=== PATIENT | female | born 2000 | race Caucasian/White ===

== ENCOUNTER 2020-03-14 12:01 | Emergency (ER) | payer MEDICAID ==
--- NOTE | 2020-03-14 12:53 | EDM.PDOC ---
ED HPI GENERAL MEDICAL PROBLEM - General Chief Complaint: Respiratory Problem Stated Complaint: SOB/SORE THROAT/COUGH Time Seen by Provider: 03/14/20 12:43 - History of Present Illness INITIAL COMMENTS - FREE TEXT/NARRATIVE: 19-year-old female presents the emergency room with sore throat cough and nasal congestion. Patient has had a several day history of upper airway congestion cough and sore throat. She is not aware of any fevers or chills. Patient is currently being worked up for respiratory condition. She has had pulmonary function test done I am unaware of the results of this. Patient lost her voice yesterday and this is starting to come back but is not completely better. Patient has some intermittent ear discomfort interestingly patient had tube placed in her left ear this last July. Patient denies . She is having her period at this time. Chest Pain Score (Numeric/FACES): 6 - Related Data Allergies Allergy/AdvReac Type Severity Reaction Status Date / Time metoclopramide [From Reglan] Allergy Hives Verified 03/14/20 12:12 Penicillins Allergy Hives Verified 03/14/20 12:12 promethazine Allergy Hives Verified 03/14/20 12:12 Home Meds: Home Meds . [No Known Home Meds] 03/14/20 [History] Past Medical History HEENT History: Reports: Otitis Media Other HEENT History: states had epiglottitis. Respiratory History: Reports: Bronchitis, Recurrent, Pneumonia, Recurrent, Other (See Below) Other Respiratory History: pleurisy. 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: Neurological History: Reports: Concussion, Vertigo Other Neuro History: POTS Psychiatric History: Reports: Anxiety, Depression Hematologic History: Reports: Anemia - Infectious Disease History Infectious Disease History: Reports: C-Difficile, Influenza - Past Surgical History HEENT Surgical History: Reports: Myringotomy w Tube(s) GI Surgical History: Reports: Cholecystectomy Social & Family History - Tobacco Use Smoking Status *Q: Never Smoker Second Hand Smoke Exposure: No - Caffeine Use Caffeine Use: Reports: Tea - Recreational Drug Use Recreational Drug Use: No ED ROS GENERAL - Review of Systems Review Of Systems: See Below Constitutional: Reports: No Symptoms HEENT: Reports: Rhinitis, Sinus Problem, Throat Pain Respiratory: Reports: Cough. Denies: Shortness of Breath, Wheezing Cardiovascular: Reports: No Symptoms Endocrine: Reports: No Symptoms GI/Abdominal: Denies: Abdominal Pain, Constipation, Diarrhea, Nausea, Vomiting : Reports: No Symptoms Musculoskeletal: Reports: No Symptoms Skin: Reports: No Symptoms Neurological: Reports: No Symptoms ED EXAM, GENERAL - Physical Exam Exam: See Below Exam Limited By: No Limitations General Appearance: Alert, No Apparent Distress Eye Exam: Bilateral Eye: Normal Inspection Ears: Other (Left tympanic membrane is minimally erythematous there is a tube set in the canal right tympanic membrane is normal) Nose: Normal Inspection, Other (And is percussion reveals marked sinus tenderness on the right maxillary sinus to a lesser degree the right frontal sinus no left-sided sinus tenderness.) Throat/Mouth: Normal Inspection, Normal Lips, Normal Teeth, Normal Gums, Normal Oropharynx, Normal Voice, No Airway Compromise Head: Atraumatic, Normocephalic Neck: No: Lymphadenopathy (L), Lymphadenopathy (R) Respiratory/Chest: No Respiratory Distress, Lungs Clear, Normal Breath Sounds Cardiovascular: Regular Rate, Rhythm, No Edema, No Murmur GI/Abdominal: Normal Bowel Sounds, Soft, Non-Tender Back Exam: Normal Inspection. No: CVA Tenderness (L), CVA Tenderness (R) Extremities: Normal Inspection, No Pedal Edema Neurological: Alert, Oriented, Normal Cognition Course - Vital Signs Last Recorded V/S: Last Vital Signs Temp 36.4 C 03/14/20 12:05 Pulse 98 03/14/20 12:05 Resp 18 03/14/20 12:05 BP 118/77 03/14/20 12:05 Pulse Ox 98 03/14/20 12:05 - Orders/Labs/Meds Labs: Laboratory Tests 03/14/20 Range/Units 13:10 SARS-CoV-2 RNA (KENDRA) Negative (NEGATIVE) - Re-Assessments/Exams Free Text/Narrative Re-Assessment/Exam: 03/14/20 14:27 Patient's chest x-ray is entirely normal. COVID screen is negative. The patient will be treated for sinusitis with clindamycin 300 mg 3 times a day as the patient is pen allergic. Departure - Departure Time of Disposition: 14:27 Disposition: Home, Self-Care 01 Clinical Impression: Right maxillary sinusitis, Pharyngitis - Discharge Information Forms: ED Department Discharge Additional Instructions: Return to the emergency room with any questions problems or worsening symptoms. You have been started on clindamycin this is an antibiotic take 1 3 times a day until they are all gone. Establish with a local healthcare provider you may follow-up with the hospital clinic here. [phone] Sepsis Event Note (ED) - Evaluation Sepsis Screening Result: No Definite Risk - Focused Exam Vital Signs: Vital Signs Temp Pulse Resp BP Pulse Ox 03/14/20 12:05 36.4 C 98 18 118/77 98
--- NOTE | 2020-03-14 13:24 | CR ---
Chest: Portable view of the chest was obtained. Comparison: No prior chest imaging is available. Heart size and mediastinum are normal. Lungs are clear with no acute parenchymal change. Bony structures shows minimal scoliosis within the spine. Previous cholecystectomy is noted. Impression: 1. Nothing acute is appreciated on portable chest x-ray. Diagnostic code #2 This report was dictated in MDT
== END 2020-03-14 14:40 | disposition home or self-care (01) ==
LOC: JD.ED 12:01
DX: J02.9 Acute pharyngitis, unspecified (principal); J32.0 Chronic maxillary sinusitis; Z88.8 Allergy status to other drugs, medicaments and biological substances; Z88.0 Allergy status to penicillin; Z20.828 Contact with and (suspected) exposure to other viral communicable diseases
CPT/HCPCS: 71045; 71045-26; 99283; 99283-25; U0002

== ENCOUNTER 2020-03-27 14:17 | Emergency (ER) | payer MEDICAID ==
[2020-03-27] MEDS ORDERED: cefTRIAXone 2 GM in Sodium Chloride 0.9% 100 ML IV ONE (16:05)
[2020-03-27] MEDS ORDERED: Sodium Chloride 0.9% 10 ML Syringe FLUSH PRN (16:05)
--- NOTE | 2020-03-27 16:06 | EDM.PDOC ---
ED HPI GENERAL MEDICAL PROBLEM - General Chief Complaint: Neuro Symptoms/Deficits Stated Complaint: L EAR PAIN/BLEEDING Time Seen by Provider: 03/27/20 15:55 Source of Information: Reports: Patient History Limitations: Reports: No Limitations - History of Present Illness INITIAL COMMENTS - FREE TEXT/NARRATIVE: 19-year-old female presents to the ED complaining of bilateral ear pain for the last 2 weeks. She is feeling very off kilter and her balance and states she lists towards the left side. Associated headache occasional nausea associated with vertigo symptoms. She feels like the world is spinning at times and only gets better if she holds very still. She reports having myringotomy tubes placed within the last 9 months due to chronic serous otitis media. She appre ciates some drainage intermittently from the left ear. She denies any nasal congestion. She denies fever or chills. She denies any cough. Of note the patient fainted when she was being guided back to her room in the hallway outside of room #2. She was unresponsive for a good minute. She was breathing with a pulse. We were able to pick her up and put her on a gurney and get her into her room. She did complain of diffuse low back pain after that fall even though her fall was broken by 1 of the nurses. She certainly did not bang her head on the floor. Onset: Other (Having injured brought medical problems with ear pain for the last 2 weeks.) Duration: Week(s):, Getting Worse (Gait on the left side.) Location: Reports: Other (Increasing bouts of severe vertigo where the room is spinning. Increased pain in both ears worse on the left than the right.) Quality: Reports: Other (Significant vertigo especially with movement of her head to the left side. This will be associate with nausea and no vomiting so far) Severity: Severe Improves with: Reports: Rest Worsens with: Reports: Movement Context: Denies: Activity, Exercise, Lifting, Sick Contact, Trauma, Other Associated Symptoms: Reports: Headaches, Loss of Appetite, Malaise, Nausea/Vomiting (Nausea without vomiting), Other (Off balance). Denies: No Other Symptoms, Confusion, Chest Pain, Cough, cough w sputum, Diaphoresis, Fever/Chills, Rash, Seizure, Shortness of Breath, Syncope Treatments YEAST DISTILLER: Reports: Acetaminophen Bilateral Ear Pain Score (Numeric/FACES): 5 - Related Data Allergies Allergy/AdvReac Type Severity Reaction Status Date / Time adhesive Allergy Severe Hives Verified 03/27/20 15:05 chlorhexidine Allergy Severe Hives Verified 03/27/20 15:05 metoclopramide [From Reglan] Allergy Severe Hives Verified 03/27/20 15:05 Penicillins Allergy Severe Hives Verified 03/27/20 15:05 promethazine Allergy Severe Hives Verified 03/27/20 15:05 Home Meds: Home Meds Hydrocort/Neomycin/Polymyxin B [Dcmrhsjf-Pbnecnuxw-HR Otic Susp] 10 ml EARLF TID #1 bottle 03/27/20 [Rx] levoFLOXacin [Levaquin] 500 mg PO DAILY #9 tab 03/27/20 [Rx] oxyCODONE HCl/Acetaminophen [Percocet 5-325 mg Tablet] 1 - 2 each PO Q4H PRN #15 tablet 03/27/20 [Rx] Past Medical History HEENT History: Reports: Otitis Media Other HEENT History: states had epiglottitis. Cardiovascular History: Reports: Other (See Below) Other Cardiovascular History: postural orthostatic tachycardic syndrome Respiratory History: Reports: Bronchitis, Recurrent, Pneumonia, Recurrent, Other (See Below) Other Respiratory History: pleurisy. 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: Neurological History: Reports: Concussion, Vertigo Other Neuro History: POTS Psychiatric History: Reports: Anxiety, Depression Hematologic History: Reports: Anemia - Infectious Disease History Infectious Disease History: Reports: C-Difficile, Influenza - Past Surgical History HEENT Surgical History: Reports: Myringotomy w Tube(s) GI Surgical History: Reports: Cholecystectomy Social & Family History - Family History Family Medical History: Noncontributory - Tobacco Use Smoking Status *Q: Never Smoker - Caffeine Use Caffeine Use: Reports: Tea - Recreational Drug Use Recreational Drug Use: No - Living Situation & Occupation Living situation: Reports: Single Occupation: Employed ED ROS ENT - Review of Systems Review Of Systems: See Below Constitutional: Reports: Malaise, Weakness, Fatigue, Decreased Appetite, Weight Loss. Denies: Fever, Chills HEENT: Reports: Glasses, Vertigo (Especially when looking to the left side.) Respiratory: Denies: No Symptoms, Shortness of Breath, Wheezing, Pleuritic Chest Pain, Cough Cardiovascular: Reports: Lightheadedness. Denies: Chest Pain, Blood Pressure Problem, Claudication, Dyspnea on Exertion, Edema, Orthopnea, Palpitations Endocrine: Reports: Fatigue GI/Abdominal: Reports: Nausea. Denies: Vomiting (Late into the vertigo.) : Reports: No Symptoms Musculoskeletal: Reports: Back Pain (He is low back pain since fainting in the hallway outside of room #2 in the ED. She was caught partially by the nursing staff but she still hit the floor fairly hard with her back) Skin: Reports: No Symptoms Neurological: Reports: Dizziness, Difficulty Walking, Gait Disturbance. Denies: Confusion, Headache, Numbness (Which is interpreted as vertigo particularly with looking to the left.), Pre-Existing Deficit ( She has bumped into [place] etc.), Syncope, Tingling, Tremors, Trouble Speaking (Finds her self listing towards the left side when she is walking down the hallway.), Weakness, Change in Speech Psychiatric: Reports: Anxiety. Denies: Hallucinations (Mild) Hematologic/Lymphatic: Reports: No Symptoms ED EXAM, ENT - Physical Exam Exam: See Below Exam Limited By: No Limitations General Appearance: Alert, WD/WN, Mild Distress (She is mildly distressed since she fainted in the hallway. She does admit that she has not had anything to eat or drink today.), Other (Temperature is 36.2. Heart rate 73 and sinus respiratory is 18 sats 100% on room air. BP is 127/71.) Eye Exam: Left Eye: Nystagmus (Denies statement sustained on looking to right.), Bilateral Eye: Normal Inspection, PERRL (Pills are 8 mm and symmetrical and respond to light.) Ears: Other (Patient has a green myringotomy tubes in both tympanic membranes. On the right side it is completely normal on the left of the eardrum is bulging erythematous and there is purulent material exuding from around the tube as well of some inside the tube into the ear canal. The tube itself may will actually be occluded with inspissated 6 secretions and not be draining properly. There is no cerumen in either ear canal.) Nose: Nasal Swelling Mouth/Throat: Normal Inspection (She has significant nasal swelling of the medial and superior turbinates bilaterally.), Normal Gums, Normal Lips, Normal Teeth, Other (He has suffered no dental or) Head: Atraumatic, Normocephalic, Other (There are no outward signs of head or facial trauma.) Neck: Normal Inspection, Supple, Non-Tender, Full Range of Motion. No: Lymphadenopathy (L), Lymphadenopathy (R) Respiratory/Chest: No Respiratory Distress, Lungs Clear, Normal Breath Sounds, No Accessory Muscle Use, Chest Non-Tender Cardiovascular: Normal Peripheral Pulses, No Edema, No Gallop, No Murmur, No Rub Back: Normal Inspection, Vertebral Tenderness (Patient is tender along the vertebra of the lumbar spine particularly lumbar 1 and lumbar to his spinous processes. There was no evidence of abrasions or contusions at this time). No: CVA Tenderness (L), CVA Tenderness (R) Extremities: Normal Inspection, Normal Range of Motion, Non-Tender, No Pedal Edema, Normal Capillary Refill Neurological: Alert, Oriented, CN II-XII Intact, Normal Cognition, Normal Gait, No Motor/Sensory Deficits Psychiatric: Anxious, Tearful Skin: Warm, Dry, Intact, Normal Color, No Rash Course - Vital Signs Last Recorded V/S: Last Vital Signs Temp 36.2 C 03/27/20 15:01 Pulse 73 03/27/20 15:01 Resp 18 03/27/20 15:01 BP 127/71 03/27/20 15:01 Pulse Ox 100 03/27/20 15:01 - Orders/Labs/Meds Orders: Active Orders 24 hr Category Date Time Status Peripheral IV Care [RC] . DIRECTED Care 03/27/20 16:05 Active Lumbar Spine 2 or 3V [CR] Stat Exams 03/27/20 16:13 Taken Sodium Chloride 0.9% [Saline Flush] Med 03/27/20 16:05 Active 10 ml FLUSH ASDIRECTED PRN Durable Medical Equipment for Discharge [DME for Oth 03/27/20 19:05 Ordered Discharge] [COMM] Stat Peripheral IV Insertion Adult [OM.PC] Stat Oth 03/27/20 16:05 Ordered Medication Orders Sodium Chloride (Saline Flush) 10 ml FLUSH ASDIRECTED PRN PRN Reason: Keep Vein Open Last Admin: 03/27/20 16:11 Dose: 10 ml Documented by: KATHIA Meds: Medications Generic Name Dose Route Start Last Admin Trade Name Freq PRN Reason Stop Dose Admin Sodium Chloride 10 ml 03/27/20 16:05 03/27/20 16:11 Saline Flush FLUSH 10 ml ASDIRECTED PRN Administration Keep Vein Open Discontinued Medications Generic Name Dose Route Start Last Admin Trade Name Анна PRN Reason Stop Dose Admin Ceftriaxone Sodium 2 gm/ 100 mls @ 200 mls/hr 03/27/20 16:05 03/27/20 16:10 Sodium Chloride IV 03/27/20 16:34 200 mls/hr ONETIME ONE Administration Metoclopramide HCl 7.5 mg 03/27/20 16:13 Reglan IVPUSH 03/27/20 16:14 ONETIME STA Ondansetron HCl 4 mg 03/27/20 16:12 03/27/20 16:20 Zofran IVPUSH 03/27/20 16:13 4 mg ONETIME ONE Administration - Radiology Interpretation Free Text/Narrative:: 19-year-old female attends the ED primarily due to bilateral ear pain reported for the last 2 weeks. She has had myringotomy tubes placed for chronic middle ear infection about 9 months ago. She is also experiencing significant vertigo symptoms listing towards the left side and associated nausea without vomiting. She fainted in the hallway on the way back to room #5 in front of room #2 and the nurse was able to break most of her fall to the floor but she did hit her lower back lumbar spine on the floor her head was spared injury. We picked her up and put her on the gurney and she started to come around. She was unresponsive for a good minute. He will had a pulse and was breathing adequately. Examination reveals an acute left otitis media with purulent material coming from the myringotomy tube as well as around the tube suggesting the tube itself may be occluded with inspissated secretions. She does have some mild sustained nystagmus on right lateral gaze. She did fine with [id number] assessment and [id number] assessment and rapid alternating movements. She did have some pain on palpation of her lumbar spine and therefore an x-ray of the L-spine will be obtained. - Re-Assessments/Exams Free Text/Narrative Re-Assessment/Exam: 03/27/20 16:28: X-rays of the lumbar spine revealed no fractures. Plan she will be placed on oral antibiotic Levaquin 500 mg once daily for the next 9 days. She did complete 1 g of Rocephin while in the emergency department IV. She is allergic to penicillins and it says severe therefore I did not place her on Omnicef as originally planned. She will be placed on Cortisporin otic drops 3 drops to the left ear 3 times daily for the next 5 days in an effort to penetrate the middle ear cavity and hopefully unoccluded the myringotomy tube. Advised follow-up in the clinic in a week's time. She was given Zofran 4 mg sublingual before she left due to nausea felt to be related to vertigo symptoms. Note given to excuse her from the workplace for the next 4 days. Departure - Departure Time of Disposition: 18:48 Disposition: Home, Self-Care 01 Condition: Fair Clinical Impression: Left middle ear infection Qualifiers: Otitis media type: suppurative Chronicity: acute Recurrence: recurrent Spontaneous tympanic membrane rupture: without spontaneous rupture Qualified Code(s): H66.005 - Acute suppurative otitis media without spontaneous rupture of ear drum, recurrent, left ear Acute labyrinthitis Qualifiers: Laterality: left Qualified Code(s): H83.02 - Labyrinthitis, left ear Contusion of lower back Qualifiers: Encounter type: initial encounter Qualified Code(s): S30.0XXA - Contusion of lower back and pelvis, initial encounter - Discharge Information *PRESCRIPTION DRUG MONITORING PROGRAM REVIEWED*: Not Applicable *COPY OF PRESCRIPTION DRUG MONITORING REPORT IN PATIENT FRANCOISE: Not Applicable Prescriptions: Hydrocort/Neomycin/Polymyxin B [Ivvothwr-Xvbxgjpfp-LO Otic Susp] 10 ml EARLF TID #1 bottle levoFLOXacin [Levaquin] 500 mg PO DAILY #9 tab oxyCODONE HCl/Acetaminophen [Percocet 5-325 mg Tablet] 1 - 2 each PO Q4H PRN #15 tablet PRN Reason: pain relief. Instructions: Otitis Media, Adult Referrals: PCP,None [Primary Care Provider] - Forms: ED Department Discharge, ED Return to Work/School Form Additional Instructions: Evaluation in the emergency room today in regards to bilateral ear pain for the last week. Myringotomy tubes have been placed within the last 9 months because of chronic middle ear infections. The infections have also caused you to have a marked disruption in your balance with listing to the left side and potentially easily to fall. You also appreciated some decreased sensation in the left side of your zane-face. All of the cranial nerves are otherwise working. Examination reveals that there is purulent material bulging around the myringotomy tube on the left side and I suspect the left myringotomy tube is plugged with purulent crust. The eardrum is bulging causing pain. The right side appears to be functioning normally. You had a fainting episode while in the hospital today and you were partially caught to break your fall to the floor but you still hit your back fairly hard on the floor and therefore x-rays of the back were obtained. The x-rays did not show any broken bones and normal alignment. No soft tissue abnormalities were identified either. Expect to have increased stiffness and soreness in your lower back over the next 3 to 4 days. Treatment of your left ear infection is combination of eardrops called Cortisporin optic drops use 3 drops to the left ear 3 times daily for the next 5 days of course lay on your right side for good 5 to 10 minutes after you put the drops into allow them to hopefully enter the middle ear cavity. You will also need to take oral antibiotic Levaquin 500 mg once daily around suppertime for t he next 9 days. First dose of antibiotic called Rocephin was given in the emergency room so that it will start working quicker for you. 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 Suggest follow-up with your personal care physician in 8 to 10 days time to see how you are doing. Pain medication to be Percocet tabs 5/325 mg usually 1 tablet with Motrin 600 mg every 6 hours is enough to control pain both in your ear and in your low back. Pain pill should be taken with some food in your stomach and if you take enough of them the aid will cause constipation. Some people need to take MiraLAX powder 17 g or 1 scoop daily to prevent constipation from occurring while taking these pills. Sepsis Event Note (ED) - Evaluation Sepsis Screening Result: No Definite Risk - Focused Exam Vital Signs: Vital Signs Temp Pulse Resp BP Pulse Ox 03/27/20 15:01 36.2 C 73 18 127/71 100 - My Orders Last 24 Hours: My Active Orders 03/27/20 16:05 Peripheral IV Care [RC] . DIRECTED Sodium Chloride 0.9% [Saline Flush] 10 ml FLUSH ASDIRECTED PRN Peripheral IV Insertion Adult [OM.PC] Stat 03/27/20 16:13 Lumbar Spine 2 or 3V [CR] Stat 03/27/20 19:05 Durable Medical Equipment for Discharge [DME for Discharge] [COMM] Stat - Assessment/Plan Last 24 Hours: My Active Orders 03/27/20 16:05 Peripheral IV Care [RC] . DIRECTED Sodium Chloride 0.9% [Saline Flush] 10 ml FLUSH ASDIRECTED PRN Peripheral IV Insertion Adult [OM.PC] Stat 03/27/20 16:13 Lumbar Spine 2 or 3V [CR] Stat 03/27/20 19:05 Durable Medical Equipment for Discharge [DME for Discharge] [COMM] Stat
[2020-03-27] MEDS ORDERED: Ondansetron 4 MG/2 ML SDV IVPUSH ONE (16:12)
[2020-03-27] MEDS ORDERED: Metoclopramide 10 MG/2 ML SDV IVPUSH STA (16:13)
--- NOTE | 2020-04-21 11:22 | CR ---
PROCEDURE INFORMATION: Exam: XR Lumbosacral Spine, 2 or 3 Views Exam date and time: 03/27/2020 5:15 PM Age: 19 years old Clinical indication: Injury or trauma; Fall; Sprain or strain, lumbar ligaments; Patient HX: Patient fainted in hallway, complains of back pain TECHNIQUE: Imaging protocol: XR of the lumbosacral spine, 2 or 3 views. COMPARISON: No relevant prior studies available. FINDINGS: Bones/joints: Near anatomic alignment. There are no significant degenerative changes present. There is no evidence of acute fracture. Soft tissues: No acute soft tissue abnormalities are identified. Intraperitoneal space: Patient is status post cholecystectomy. IMPRESSION: No acute findings. Thank you for allowing us to participate in the care of your patient. Dictated and Authenticated by: Tru Paz MD 04/19/2020 7:48 PM Central Time ([place] & [place]) DARLENE
== END 2020-03-27 19:50 | disposition home or self-care (01) ==
LOC: JD.ED 14:17
DX: S30.0XXA Contusion of lower back and pelvis, initial encounter (principal); H66.005 Acute suppurative otitis media without spontaneous rupture of ear drum, recurrent, left ear; H83.02 Labyrinthitis, left ear; Z96.22 Myringotomy tube(s) status; Z91.048 Other nonmedicinal substance allergy status; Z88.8 Allergy status to other drugs, medicaments and biological substances; Z88.0 Allergy status to penicillin; W19.XXXA Unspecified fall, initial encounter
CPT/HCPCS: 72100; 96365; 96375; 99284; J0696; J2405; J7050; 99283

== ENCOUNTER 2021-02-14 14:00 | Emergency (ER) | payer SELFPAY ==
[2021-02-14] MEDS ORDERED: Acetaminophen 325 MG Tab PO ONE (14:50)
[2021-02-14] MEDS ORDERED: Ondansetron 4 MG/2 ML SDV IVPUSH ONE (14:51)
--- NOTE | 2021-02-14 14:52 | EDM.PDOC ---
ED HPI GENERAL MEDICAL PROBLEM - General Chief Complaint: General Stated Complaint: HEADACHE NAUSEA BODY PAINS Time Seen by Provider: 02/14/21 14:35 Source of Information: Reports: Patient History Limitations: Reports: No Limitations - History of Present Illness INITIAL COMMENTS - FREE TEXT/NARRATIVE: 20-year-old female presents to the ED for evaluation of generally not feeling well. She is complaining of flulike symptoms with headache, nasal congestion mild sore throat minimal cough loss of appetite. Her concern is whether she could have contracted COVID-19 illness. Patient has a diffuse right-sided hemiparesis after an angiogram was completed using her right radial artery in December. She was found to have 30 some clots within her brain which they felt was secondary to break off of clots from the radial artery and occurring from the angiogram itself. She was in rehab for over a month. She is currently getting around with the aid of a walker. Still gets headaches. 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 She is not on any antiseizure medications. She feels mildly short of breath. She is also not sure that she empties her bladder completely when she goes. Onset: Gradual Onset Date: 02/04/21 (Feels since she has had painful ears mild sore throat headaches getting worse over the last 10 days. She went to be sure she did not have COVID-19 illness.) Duration: Day(s):, Getting Worse, Intermittent Location: Reports: Face, Neck (Pain and throat pain), Chest (Chest with mild cough), Generalized (Normalized weakness with nausea. Using Zofran a good deal more than normal. Feels right side is more weak than it was.) Quality: Reports: Ache Severity: Moderate (Neurolyse myalgia) Improves with: Reports: Other (Is been using Tylenol and Zofran fairly regularly.) Worsens with: Reports: Other (Is to play out quite easily on minimal exertion. Has for the most part been staying at home) Context: Reports: Other (Patient is recovering from a stroke). Denies: Activity, Exercise, Lifting, Sick Contact, Trauma Headache Pain Score (Numeric/FACES): 9 Generalized Pain Score (Numeric/FACES): 9 - Related Data Allergies Allergy/AdvReac Type Severity Reaction Status Date / Time adhesive Allergy Severe Hives Verified 02/14/21 14:24 chlorhexidine Allergy Severe Hives Verified 02/14/21 14:24 droperidol Allergy Severe Hallucinati Verified 02/14/21 14:24 ons metoclopramide [From Reglan] Allergy Severe Hives Verified 02/14/21 14:24 Penicillins Allergy Severe Hives Verified 02/14/21 14:24 promethazine Allergy Severe Hives Verified 02/14/21 14:24 Home Meds: Home Meds Hydrocort/Neomycin/Polymyxin B [Vxjcquum-Srauawcym-FY Otic Susp] 10 ml EARLF TID #1 bottle 03/27/20 [Rx] levoFLOXacin [Levaquin] 500 mg PO DAILY #9 tab 03/27/20 [Rx] oxyCODONE HCl/Acetaminophen [Percocet 5-325 mg Tablet] 1 - 2 each PO Q4H PRN #15 tablet 03/27/20 [Rx] Cefdinir [Omnicef] 300 mg PO BID #16 cap 02/14/21 [Rx] Past Medical History HEENT History: Reports: Otitis Media Other HEENT History: states had epiglottitis. Cardiovascular History: Reports: Other (See Below) Other Cardiovascular History: postural orthostatic tachycardic syndrome. idiopathic HTN Respiratory History: Reports: Bronchitis, Recurrent, Pneumonia, Recurrent, Other (See Below) Other Respiratory History: pleurisy. Gastrointestinal History: Reports: GERD Genitourinary History: Reports: Pyelonephritis, Renal Calculus, UTI, Recurrent [facility] [facility] History: Reports: Neurological History: Reports: Concussion, CVA, Vertigo, Other (See Below) (Patient reports intermittent sudden jerking of her head neck towards the right side with some movement of her right upper extremity at times as well. She states it occurs almost on a daily basis suggesting focal type seizure. This would certainly be compatible with her recent neurological events w) Other Neuro History: POTS Psychiatric History: Reports: Anxiety, Depression Hematologic History: Reports: Anemia - Infectious Disease History Infectious Disease History: Reports: C-Difficile, Influenza - Past Surgical History HEENT Surgical History: Reports: Myringotomy w Tube(s) GI Surgical History: Reports: Cholecystectomy Social & Family History - Family History Family Medical History: No Pertinent Family History - Caffeine Use Caffeine Use: Reports: Tea - Living Situation & Occupation Living situation: Reports: Single Occupation: Employed ED ROS GENERAL - Review of Systems Review Of Systems: See Below Constitutional: Reports: Fever, Chills, Malaise, Weakness, Fatigue, Decreased Appetite HEENT: Reports: Other (she has a bilateral temporal hemianopsia post CVA) Respiratory: Reports: Shortness of Breath, Cough, Sputum (occassional white sputum). Denies: Wheezing, Pleuritic Chest Pain Cardiovascular: Reports: No Symptoms GI/Abdominal: Reports: Decreased Appetite. Denies: Diarrhea : Reports: Other (feeling of incomplete emptying of urinary bladder. ) Musculoskeletal: Reports: Muscle Pain ( generalized myalgia) Skin: Reports: No Symptoms Neurological: Reports: Headache, Difficulty Walking (since CVA-- Rt sided hemiparesis.). Denies: Confusion, Dizziness, Numbness, Seizure, Syncope, Tingling, Weakness Psychiatric: Reports: No Symptoms Hematologic/Lymphatic: Reports: No Symptoms Immunologic: Reports: No Symptoms ED EXAM, GENERAL - Physical Exam Exam: See Below Exam Limited By: No Limitations General Appearance: Alert, WD/WN, Mild Distress, Other (Vital signs show temperature of 36.4 degrees. Heart rate is 89 and sinus. Respiratory is 18 with O2 sats of 98% room air. BP 106/73) Eye Exam: Bilateral Eye: Normal Inspection (No blepharal pallor or scleral icterus.), PERRL Ears: Normal TMs, Other (Complaining of ear pain but it is referred from sore throat.) Throat/Mouth: Normal Inspection, Normal Lips, Normal Oropharynx, Other (Your pharynx appears normal on exam in spite of her complaint of sore throat.) Head: Atraumatic, Normocephalic Neck: Normal Inspection, Supple, Full Range of Motion. No: Lymphadenopathy (L), Lymphadenopathy (R) Respiratory/Chest: No Respiratory Distress, Lungs Clear, Normal Breath Sounds, No Accessory Muscle Use, Decreased Breath Sounds (Decreased breath sounds at lower 15% lung ames bilaterally without adventitial sounds.). No: Respiratory Distress Cardiovascular: Normal Peripheral Pulses, Regular Rate, Rhythm, No Edema, No Gallop, No Murmur, No Rub Peripheral Pulses: 3+: Carotid (L), Carotid (R), Posterior Tibial (L), Posterior Tibial (R), Dorsalis Pedis (L), Dorsalis Pedis (R) GI/Abdominal: Normal Bowel Sounds, Soft, Non-Tender, No Organomegaly, No Distention, Pelvis Stable Back Exam: Normal Inspection, Full Range of Motion, CVA Tenderness (L), CVA Tenderness (R) (Marked marked) Extremities: Normal Inspection, Normal Range of Motion, Non-Tender, No Pedal Edema Neurological: Alert, Oriented, CN II-XII Intact, Normal Cognition, Sensory/Motor Deficit (Patient has right-sided weakness post CVA involving arm and leg but face is spared. She does have a bitemporal right-sided hemianopsia.). No: Normal Gait, Normal Reflexes, No Motor/Sensory Deficits Psychiatric: Normal Affect, Normal Mood Skin Exam: Warm, Dry, Intact, Normal Color, No Rash Course - Vital Signs Last Recorded V/S: Last Vital Signs Temp 36.4 C 02/14/21 14:22 Pulse 89 02/14/21 14:22 Resp 18 02/14/21 14:22 BP 106/73 02/14/21 14:22 Pulse Ox 98 02/14/21 14:22 - Orders/Labs/Meds Labs: Laboratory Tests 02/14/21 02/14/21 02/14/21 Range/Units 14:28 15:30 15:30 WBC 6.50 (3.98-10.04) K/mm3 RBC 4.58 (3.98-5.22) M/mm3 Hgb 13.3 (11.2-15.7) gm/dl Hct 40.3 (34.1-44.9) % MCV 88.0 (79.4-94.8) fl MCH 29.0 (25.6-32.2) pg MCHC 33.0 (32.2-35.5) g/dl RDW Std Deviation 42.1 (36.4-46.3) fL Plt Count 252 (182-369) K/mm3 MPV 11.1 (9.4-12.3) fl Neut % (Auto) 52.3 (34.0-71.1) % Lymph % (Auto) 36.3 (19.3-51.7) % [place] % (Auto) 8.9 (4.7-12.5) % Eos % (Auto) 1.8 (0.7-5.8) Baso % (Auto) 0.5 (0.1-1.2) % Neut # (Auto) 3.40 (1.56-6.13) K/mm3 Lymph # (Auto) 2.36 (1.18-3.74) K/mm3 [place] # (Auto) 0.58 H (0.24-0.36) K/mm3 Eos # (Auto) 0.12 (0.04-0.36) K/mm3 Baso # (Auto) 0.03 (0.01-0.08) K/mm3 Sodium 143 (136-145) mEq/L Potassium 4.0 (3.5-5.1) mEq/L Chloride 108 H (98-107) mEq/L Carbon Dioxide 24 (21-32) mEq/L Anion Gap 15.0 (5-15) BUN 12 (7-18) mg/dL Creatinine 0.7 (0.55-1.02) mg/dL Est Cr Clr Drug Dosing 113.43 mL/min Estimated GFR (MDRD) > 60 (>60) mL/min BUN/Creatinine Ratio 17.1 (14-18) Glucose 91 (70-99) mg/dL Calcium 8.5 (8.5-10.1) mg/dL Magnesium 2.1 (1.8-2.4) mg/dL Total Bilirubin 0.3 (0.2-1.0) mg/dL AST 18 (15-37) U/L ALT 32 (14-59) U/L Alkaline Phosphatase 77 (46-116) U/L C-Reactive Protein <0.2 (<1.0) mg/dL Total Protein 7.5 (6.4-8.2) g/dl Albumin 3.8 (3.4-5.0) g/dl Globulin 3.7 gm/dL Albumin/Globulin Ratio 1.0 (1-2) HCG, Qual (NEGATIVE) HCG, Quant mIU/mL Urine Color (Yellow) Urine Appearance (Clear) Urine pH (5.0-8.0) Ur Specific [place] (1.005-1.030) Urine Protein (Negative) Urine Glucose (UA) (Negative) Urine Ketones (Negative) Urine Occult Blood (Negative) Urine Nitrite (Negative) Urine Bilirubin (Negative) Urine Urobilinogen (0.2-1.0) Ur Leukocyte Esterase (Negative) Urine RBC (0-5) /hpf Urine WBC (0-5) /hpf Ur Epithelial Cells (0-5) /hpf Urine Bacteria (FEW) /hpf Urine Mucus (FEW) /hpf SARS-CoV-2 RNA (KENDRA) Negative (NEGATIVE) 02/14/21 02/14/21 02/14/21 Range/Units 15:30 15:45 16:40 WBC (3.98-10.04) K/mm3 RBC (3.98-5.22) M/mm3 Hgb (11.2-15.7) gm/dl Hct (34.1-44.9) % MCV (79.4-94.8) fl MCH (25.6-32.2) pg MCHC (32.2-35.5) g/dl RDW Std Deviation (36.4-46.3) fL Plt Count (182-369) K/mm3 MPV (9.4-12.3) fl Neut % (Auto) (34.0-71.1) % Lymph % (Auto) (19.3-51.7) % [place] % (Auto) (4.7-12.5) % Eos % (Auto) (0.7-5.8) Baso % (Auto) (0.1-1.2) % Neut # (Auto) (1.56-6.13) K/mm3 Lymph # (Auto) (1.18-3.74) K/mm3 [place] # (Auto) (0.24-0.36) K/mm3 Eos # (Auto) (0.04-0.36) K/mm3 Baso # (Auto) (0.01-0.08) K/mm3 Sodium (136-145) mEq/L Potassium (3.5-5.1) mEq/L Chloride (98-107) mEq/L Carbon Dioxide (21-32) mEq/L Anion Gap (5-15) BUN (7-18) mg/dL Creatinine (0.55-1.02) mg/dL Est Cr Clr Drug Dosing mL/min Estimated GFR (MDRD) (>60) mL/min BUN/Creatinine Ratio (14-18) Glucose (70-99) mg/dL Calcium (8.5-10.1) mg/dL Magnesium (1.8-2.4) mg/dL Total Bilirubin (0.2-1.0) mg/dL AST (15-37) U/L ALT (14-59) U/L Alkaline Phosphatase (46-116) U/L C-Reactive Protein (<1.0) mg/dL Total Protein (6.4-8.2) g/dl Albumin (3.4-5.0) g/dl Globulin gm/dL Albumin/Globulin Ratio (1-2) HCG, Qual Positive H (NEGATIVE) HCG, Quant 18.0 mIU/mL Urine Color Yellow (Yellow) Urine Appearance Clear (Clear) Urine pH 6.0 (5.0-8.0) Ur Specific [place] > or = 1.030 (1.005-1.030) Urine Protein Negative (Negative) Urine Glucose (UA) Negative (Negative) Urine Ketones Negative (Negative) Urine Occult Blood Negative (Negative) Urine Nitrite Negative (Negative) Urine Bilirubin Negative (Negative) Urine Urobilinogen 0.2 (0.2-1.0) Ur Leukocyte Esterase 1+ H (Negative) Urine RBC 0-5 (0-5) /hpf Urine WBC 10-20 H (0-5) /hpf Ur Epithelial Cells 5-10 H (0-5) /hpf Urine Bacteria Moderate H (FEW) /hpf Urine Mucus Moderate H (FEW) /hpf SARS-CoV-2 RNA (KENDRA) (NEGATIVE) Meds: Medications Discontinued Medications Generic Name Dose Route Start Last Admin Trade Name Freq PRN Reason Stop Dose Admin Acetaminophen 975 mg 02/14/21 14:50 02/14/21 15:43 Acetaminophen 325 Mg Tab PO 02/14/21 14:51 975 mg ONETIME ONE Administration Dextrose/Sodium Chloride 1,000 mls @ 999 mls/hr 02/14/21 15:00 02/14/21 15:46 Dextrose 5%-Normal Saline IV 999 mls/hr ASDIRECTED TIKI Administration Ceftriaxone Sodium 2 gm/ 100 mls @ 200 mls/hr 02/14/21 17:35 02/14/21 17:45 Sodium Chloride IV 02/14/21 18:04 200 mls/hr ONETIME ONE Administration Ondansetron HCl 4 mg 02/14/21 14:51 02/14/21 15:46 Ondansetron 4 Mg/2 Ml Sdv IVPUSH 02/14/21 14:52 4 mg ONETIME ONE Administration - Radiology Interpretation Free Text/Narrative:: 20-year-old female attends the ED generally not feeling well with flulike symptoms many of which could be compatible with COVID-19 illness. I.e. headache, sore throat, nasal congestion, mild congested cough and decreased appetite. No nausea vomiting or diarrhea. Plan she will have a COVID-19 screen. 1 view chest x-ray and routine labs performed including urinalysis since she has tenderness both costovertebral angles on examination. She states since her stroke she often feels like she does not empty her bladder completely. I will have the nurses do a bladder scan after she does void. - Re-Assessments/Exams Free Text/Narrative Re-Assessment/Exam: 02/14/21 15:45: Chest x-ray done portably reveals heart size and mediastinum to be normal. Lungs are clear with no acute parenchymal changes. Bony structure shows nothing acute. 02/14/21 16:16 Labs reveal a normal white count at 6.50. Differential shows 52.3% neutrophils on the auto differential. Hemoglobin is 13.3 with hematocrit of 40.3. Platelet counts 252,000. Sodium is 143 with a potassium of 4.0 chloride 108 with a bicarb of 24. Anion gap is 15.0. BUN is 12 with a creatinine of 0.7 and a GFR greater than 60. Leukos is 91. Calcium is 8.5. Magnesium is 2.1. Liver function is normal. C-reactive protein is less than 0.2 total protein 7.5 with an albumin fraction of 3.8 COVID-19 screen is negative. Of note post void bladder scan reveals 26 and 28 mils in her urinary bladder. She is emptying satisfactorily 02/14/21 17:43 Urinalysis shows 1+ leukocyte esterase with 10-20 white blood cells per high-power field and 5-10 epithelial cells with moderate bacteria. Patient will be therefore given Rocephin 2 g IV. Of note just now her qualitative hCG came back positive. She believes her last on menstrual period was January 18. She has had multiple high risk pregnancies. She will follow up with one of the [facility] here in town within the next 3 weeks. Departure - Departure Time of Disposition: 18:37 Disposition: Home, Self-Care 01 Condition: Fair Clinical Impression: First trimester , Pyelonephritis - Discharge Information *PRESCRIPTION DRUG MONITORING PROGRAM REVIEWED*: Not Applicable *COPY OF PRESCRIPTION DRUG MONITORING REPORT IN PATIENT FRANCOISE: Not Applicable Prescriptions: Cefdinir [Omnicef] 300 mg PO BID #16 cap Instructions: Pyelonephritis, Adult, [id number] Referrals: PCP,None [Primary Care Provider] - Forms: ED Department Discharge Additional Instructions: Evaluation in the emergency room today in regards to generally not feeling well with low-grade fever, headache, sore throat, sinus congestion bilateral flank pain. COVID-19 screen proved to be negative. Chest x-ray was also completely normal. Marked bilateral tenderness over the kidneys on palpation of your back. The white blood cell count was not markedly elevated. Urinalysis however sugge sted an infective process and a urine culture has been ordered. You were treated with first course of antibiotic Rocephin 1 g intravenously. You will need to start oral antibiotic Omnicef 300 mg twice daily starting tomorrow morning for the next 8 days to clear up kidney infection completely. In regards to new diagnosis of with last known menstrual period around January 18 you should be seen by commercial pest control representative in approximately 4 weeks time since you are high risk .
[2021-02-14] MEDS ORDERED: Dextrose 5%-0.9% NaCl 1,000 ML IV SCH (15:00)
--- NOTE | 2021-02-14 15:49 | CR ---
Chest: Portable view of the chest was obtained. Comparison: Prior chest x-ray of 03/14/20. Heart size and mediastinum are normal. Lungs are clear with no acute parenchymal change. Bony structure shows nothing acute. Impression: 1. Nothing acute is appreciated on portable chest x-ray. Diagnostic code #1
[2021-02-14] MEDS ORDERED: cefTRIAXone 2 GM in Sodium Chloride 0.9% 100 ML IV ONE (17:35)
== END 2021-02-14 18:56 | disposition home or self-care (01) ==
LOC: JD.ED 14:00
DX: O23.01 Infections of kidney in pregnancy, first trimester (principal); I10 Essential (primary) hypertension; Z88.0 Allergy status to penicillin; Z91.048 Other nonmedicinal substance allergy status; Z88.5 Allergy status to narcotic agent; Z86.73 Personal history of transient ischemic attack (TIA), and cerebral infarction without residual deficits; Z20.822 Contact with and (suspected) exposure to COVID-19; Z3A.01 Less than 8 weeks gestation of pregnancy
CPT/HCPCS: 36415; 51798; 71045; 80053; 81001; 83735; 84702; 84703; 85025; 86140; 87040; 87086; 87635; 96365; 96375; 99283; A9270; J0696; J2405; J7042; 99284; U0002

== ENCOUNTER 2021-02-21 22:31 | Emergency (ER) | payer SELFPAY ==
--- NOTE | 2021-02-22 00:01 | EDM.PDOC ---
ED HPI GENERAL MEDICAL PROBLEM - General Chief Complaint: Respiratory Problem Stated Complaint: SOB/FEELS HOT Time Seen by Provider: 02/21/21 23:15 Source of Information: Reports: Patient, Old Records (ED visit 02/14/2021) History Limitations: Reports: No Limitations - History of Present Illness INITIAL COMMENTS - FREE TEXT/NARRATIVE: Ms. Barnard is a very pleasant 20-year-old woman who, medical records indicate, was seen in this ED on 02/14/2021 with a complaint at that time of a headache, nasal congestion with mild sore throat, minimal cough, loss of appetite, and mild dyspnea. She was found to be hemodynamically stable, afebrile, saturating 98% on room air. Her physical exam was remarkable for decreased breath sounds over the lower 15% of her lung ames bilaterally, without adventitial sounds, and right hemiparesis secondary to a previous stroke, along with bitemporal right hemianopsia. Work-up included a CBC, CMP, magnesium level, CRP, quantitative hCG, urinalysis, urine test, swab for the SARS-CoV-2 virus, and a chest x-ray. Her quantitative hCG was 18, and her urine test was positive. A urinalysis was remarkable for 1+ leukocyte esterase with 10-20 WBCs, moderate bacteria, and 5-10 squamous epithelial cells. A bladder scan found only 26 to 28 mL of postvoid urine. The patient was treated with 2 g of IV Rocephin, then discharged home on cefdinir 300 mg PO BID #16, which she now states that she took as prescribed. The urine culture from 02/14/2021 subsequently grew multiple species, probably contaminant. The patient states that since that ED visit, she has seen her Solutions Architect twice, but that no pelvic ultrasound has been performed as yet. The patient is -0-1-3, with an LMP 01/18/2021 = 4w 6d, PENNY 10/25/2021. Her blood type is B- Pos. The patient now returns to the ED stating that despite taking the antibiotic, her symptoms have persisted, and that she is not feeling any better. She reports having central chest pain with inspiration, a nonproductive cough, and nasal congestion. No recent fever. She also reports experiencing pelvic cramps with spotting. She states that she has been taking Sudafed and Benadryl, without improvement in her symptoms. Here in the ED this morning, the patient is found to be hemodynamically stable, afebrile, saturating 99% on room air. She appears to be comfortable, in no acute distress. The patient denies having a recent fever, chills, sore throat, ear pain, palpitations, nausea, vomiting, constipation, diarrhea, abdominal pain, urinary symptoms, recent weight gain or weight loss, recent bloody bowel movements or black bowel movements, recent joint aches, headaches, or rashes. The patient does not have a PCP. Her Solutions Architect is Dr. Dilshad Naik, however, she states that she has an appointment to see Dr. Nahomi Blackman this coming , 02/24/2021. She has not received a COVID vaccination. Chest Pain Score (Numeric/FACES): 7 - Related Data Allergies Allergy/AdvReac Type Severity Reaction Status Date / Time adhesive Allergy Severe Hives Verified 02/21/21 23:20 chlorhexidine Allergy Severe Hives Verified 02/21/21 23:20 droperidol Allergy Severe Hallucinati Verified 02/21/21 23:20 ons metoclopramide [From Reglan] Allergy Severe Hives Verified 02/21/21 23:20 Penicillins Allergy Severe Hives Verified 02/21/21 23:20 promethazine Allergy Severe Hives Verified 02/21/21 23:20 Home Meds: Home Meds Ondansetron [Zofran ODT] 4 mg PO Q6H PRN 02/21/21 [History] nitrofurantoin macrocrystaL [Nitrofurantoin] 1 cap PO Q12H #9 capsule 02/22/21 [Rx] Past Medical History Cardiovascular History: Reports: Other (See Below) (Postural orthostatic tachycardic syndrome (POTS)) Gastrointestinal History: Reports: GERD Genitourinary History: Reports: Renal Calculus 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 History: Reports: Spontaneous (x 1) : 5 Para: 3 Neurological History: Reports: CVA (right hemiparesis) Psychiatric History: Reports: Anxiety, Depression - Infectious Disease History Infectious Disease History: Reports: C-Difficile, Influenza - Past Surgical History HEENT Surgical History: Reports: Myringotomy w Tube(s) (bilateral) GI Surgical History: Reports: Cholecystectomy Social & Family History - Tobacco Use Tobacco Use Status *Q: Never Tobacco User - Caffeine Use Caffeine Use: Reports: Tea - Recreational Drug Use Recreational Drug Use: No - Living Situation & Occupation Living situation: Reports: Single Occupation: Employed ED ROS GENERAL - Review of Systems Review Of Systems: Comprehensive ROS is negative, except as noted in HPI. ED EXAM, GENERAL - Physical Exam Exam: See Below Exam Limited By: No Limitations General Appearance: Alert, WD/WN, No Apparent Distress Eye Exam: Bilateral Eye: EOMI, Normal Inspection Ears: Normal External Exam, Normal Canal, Hearing Grossly Normal, Normal TMs, Other (Clean myringotomy tubes seen in each TM) Nose: Normal Inspection, Normal Mucosa, No Blood Throat/Mouth: Normal Inspection, Normal Lips, Normal Teeth, Normal Gums, Normal Oropharynx, Normal Voice, No Airway Compromise Head: Atraumatic, Normocephalic Neck: Normal Inspection, Supple, Non-Tender, Full Range of Motion. No: Lymphadenopathy (L), Lymphadenopathy (R) Respiratory/Chest: No Respiratory Distress, Lungs Clear, Normal Breath Sounds, No Accessory Muscle Use. No: Decreased Breath Sounds, Crackles, Rhonchi, Wheezing, Stridor, Prolonged Expiration Cardiovascular: Normal Peripheral Pulses, Regular Rate, Rhythm, No Gallop, No JVD, No Murmur, No Rub Peripheral Pulses: 3+: Radial (L), Radial (R) GI/Abdominal: Normal Bowel Sounds, Soft, Non-Tender (including suprapubically), No Organomegaly, No Distention, No Abnormal Bruit, No Mass (Female) Exam: Other (On cervical exam, a yellowish/greenish vaginal discharge was present, probably a normal variant. Parous os was closed. No vaginal lesions seen. No blood, either new or old appearing, seen.) Back Exam: Normal Inspection, Full Range of Motion, NT Extremities: Normal Inspection, Normal Range of Motion, Normal Capillary Refill Neurological: Alert, Oriented, Normal Cognition, No Motor/Sensory Deficits Psychiatric: Normal Affect Skin Exam: Warm, Dry, Intact, Normal Color, No Rash Course - Vital Signs Last Recorded V/S: Last Vital Signs Temp 36.3 C 02/21/21 23:16 Pulse 82 02/21/21 23:16 Resp 16 02/21/21 23:16 BP 111/75 02/21/21 23:16 Pulse Ox 99 02/21/21 23:16 - Orders/Labs/Meds Orders: Active Orders 24 hr Category Date Time Status Chest 2V [CR] Stat Exams 02/21/21 23:57 Taken OB Transvaginal [US] Stat Exams 02/22/21 01:02 Taken CULTURE URINE [MREF] Stat Lab 02/22/21 00:45 Received Labs: Laboratory Tests 02/22/21 02/22/21 02/22/21 Range/Units 00:16 00:16 00:20 WBC 6.28 (3.98-10.04) K/mm3 RBC 4.21 (3.98-5.22) M/mm3 Hgb 12.3 (11.2-15.7) gm/dl Hct 37.5 (34.1-44.9) % MCV 89.1 (79.4-94.8) fl MCH 29.2 (25.6-32.2) pg MCHC 32.8 (32.2-35.5) g/dl RDW Std Deviation 43.4 (36.4-46.3) fL Plt Count 265 (182-369) K/mm3 MPV 10.7 (9.4-12.3) fl Neutrophils % (Manual) 52 (40-60) % Band Neutrophils % 0 (0-10) % Lymphocytes % (Manual) 38 (20-40) % Atypical Lymphs % 0 % Monocytes % (Manual) 8 (2-10) % Eosinophils % (Manual) 1 (0.7-5.8) % Basophils % (Manual) 1 (0.1-1.2) Platelet Estimate Adequate RBC Morph Comment Normal Sodium 139 (136-145) mEq/L Potassium 3.7 (3.5-5.1) mEq/L Chloride 105 (98-107) mEq/L Carbon Dioxide 25 (21-32) mEq/L Anion Gap 12.7 (5-15) BUN 12 (7-18) mg/dL Creatinine 0.9 (0.55-1.02) mg/dL Est Cr Clr Drug Dosing 88.23 mL/min Estimated GFR (MDRD) > 60 (>60) mL/min BUN/Creatinine Ratio 13.3 L (14-18) Glucose 89 (70-99) mg/dL Calcium 9.1 (8.5-10.1) mg/dL Total Bilirubin 0.3 (0.2-1.0) mg/dL AST 19 (15-37) U/L ALT 36 (14-59) U/L Alkaline Phosphatase 77 (46-116) U/L C-Reactive Protein 0.3 (<1.0) mg/dL Total Protein 7.1 (6.4-8.2) g/dl Albumin 3.6 (3.4-5.0) g/dl Globulin 3.5 gm/dL Albumin/Globulin Ratio 1.0 (1-2) HCG, Quant 560.0 mIU/mL Urine Color (Yellow) Urine Appearance (Clear) Urine pH (5.0-8.0) Ur Specific Johnston (1.005-1.030) Urine Protein (Negative) Urine Glucose (UA) (Negative) Urine Ketones (Negative) Urine Occult Blood (Negative) Urine Nitrite (Negative) Urine Bilirubin (Negative) Urine Urobilinogen (0.2-1.0) Ur Leukocyte Esterase (Negative) Urine RBC (0-5) /hpf Urine WBC (0-5) /hpf Ur Squamous Epith Cells (0-5) /hpf Urine Bacteria (FEW) /hpf Urine Mucus (FEW) /hpf SARS-CoV-2 RNA (KENDRA) Negative (NEGATIVE) C trachomatis DNA (PCR) N gonorrhoeae DNA (PCR) 02/22/21 02/22/21 Range/Units 00:45 00:50 WBC (3.98-10.04) K/mm3 RBC (3.98-5.22) M/mm3 Hgb (11.2-15.7) gm/dl Hct (34.1-44.9) % MCV (79.4-94.8) fl MCH (25.6-32.2) pg MCHC (32.2-35.5) g/dl RDW Std Deviation (36.4-46.3) fL Plt Count (182-369) K/mm3 MPV (9.4-12.3) fl Neutrophils % (Manual) (40-60) % Band Neutrophils % (0-10) % Lymphocytes % (Manual) (20-40) % Atypical Lymphs % % Monocytes % (Manual) (2-10) % Eosinophils % (Manual) (0.7-5.8) % Basophils % (Manual) (0.1-1.2) Platelet Estimate RBC Morph Comment Sodium (136-145) mEq/L Potassium (3.5-5.1) mEq/L Chloride (98-107) mEq/L Carbon Dioxide (21-32) mEq/L Anion Gap (5-15) BUN (7-18) mg/dL Creatinine (0.55-1.02) mg/dL Est Cr Clr Drug Dosing mL/min Estimated GFR (MDRD) (>60) mL/min BUN/Creatinine Ratio (14-18) Glucose (70-99) mg/dL Calcium (8.5-10.1) mg/dL Total Bilirubin (0.2-1.0) mg/dL AST (15-37) U/L ALT (14-59) U/L Alkaline Phosphatase (46-116) U/L C-Reactive Protein (<1.0) mg/dL Total Protein (6.4-8.2) g/dl Albumin (3.4-5.0) g/dl Globulin gm/dL Albumin/Globulin Ratio (1-2) HCG, Quant mIU/mL Urine Color Yellow (Yellow) Urine Appearance Clear (Clear) Urine pH 5.5 (5.0-8.0) Ur Specific Johnston > or = 1.030 (1.005-1.030) Urine Protein Negative (Negative) Urine Glucose (UA) Negative (Negative) Urine Ketones Trace H (Negative) Urine Occult Blood Negative (Negative) Urine Nitrite Negative (Negative) Urine Bilirubin Negative (Negative) Urine Urobilinogen 0.2 (0.2-1.0) Ur Leukocyte Esterase 3+ H (Negative) Urine RBC 0-5 (0-5) /hpf Urine WBC 20-30 H (0-5) /hpf Ur Squamous Epith Cells 10-20 H (0-5) /hpf Urine Bacteria Many H (FEW) /hpf Urine Mucus Many H (FEW) /hpf SARS-CoV-2 RNA (KENDRA) (NEGATIVE) C trachomatis DNA (PCR) Not detected N gonorrhoeae DNA (PCR) Not detected Meds: Medications Discontinued Medications Generic Name Dose Route Start Last Admin Trade Name Freq PRN Reason Stop Dose Admin Al Hydroxide/Mg Hydroxide 30 ml 02/22/21 00:50 02/22/21 01:32 Aluminum Hydroxide/Magnesium Hydroxide/Simethicone Susp 30 Ml Cup PO 09/07/21 00:51 30 ml ONETIME ONE Administration Famotidine 20 mg 02/22/21 00:51 02/22/21 01:32 Famotidine 20 Mg Tab PO 02/22/21 00:52 20 mg ONETIME ONE Administration Nitrofurantoin Macrocrystals 100 mg 02/22/21 01:41 Nitrofurantoin Monohydrate/Macrocrystalline 100 Mg Cap PO 02/22/21 01:42 ONETIME STA - Re-Assessments/Exams Free Text/Narrative Re-Assessment/Exam: 02/21/21 23:58 The patient's physical exam is grossly unremarkable. I have ordered a work-up that includes numerous blood tests, a urinalysis by clean-catch, a swab for the SARS-CoV-2 virus, a chest x-ray, and a transvaginal ultrasound. 02/22/21 00:53 On pelvic examination, there was a yellowish/greenish vaginal discharge, probably a normal variant, however, I swabbed the patient for a wet prep, vaginal culture, and GC/chlamydia by PCR. The patient's parous os was closed. No vaginal lesions seen. No blood, either new or old appearing, seen. 02/22/21 01:37 Two-view chest radiograph appears to be grossly normal. The cardiac silhouette is within normal limits. No pulmonary vascular congestion. No pleural effusions. No focal infiltrate. No pneumothorax. On the PA view, there is a rectangular opacity in the mid left lung, however, I do not see a corresponding opacity on the lateral view, suggesting that it is overlying the patient. Formal read per the Radiologist pending. The patient's CBC is unremarkable. Her CMP is unremarkable. Her CRP is within normal limits at 0.3. Her quantitative hCG is 560. Her urinalysis is remarkable for negative occult blood with 0-5 RBCs, 3+ leukocyte esterase with 20-30 WBCs, nitrate negative with many bacteria, and 10- 20 squamous epithelial cells. Her swab for the SARS-CoV-2 virus is negative. Her wet prep is remarkable for many WBCs and moderate epithelial cells, and is otherwise negative. Results of the patient's vaginal GC/chlamydia by PCR and transvaginal ultrasound are still pending. Based on the above, I have ordered a urine culture, and will start the patient on nitrofurantoin (even if not a true UTI, current guidelines recommend treating asymptomatic bacteriuria in ). 02/22/21 02:29 Transvaginal ultrasound is read by [facility] as: 1. Small cystic sac-like structure within the uterus as above, with no yolk sac or pole yet identified. 2. Differential diagnosis includes very early intrauterine , however, an ectopic cannot entirely be excluded. 3. Correlation with quantitative serial beta-hCG levels and sonographic follow- up recommended. 4. Remainder of findings as above. 02/22/21 03:07 Vaginal GC/chlamydia by PCR is negative for both. 02/22/21 03:13 Test results discussed with the patient. As above, she appears to have a UTI, and will be treated with a 5-day course of nitrofurantoin. The remainder of her presenting symptoms appear to be due to a viral URI with cough. She appears to have very early . She will be following up with Dr. Blackman on . Departure - Departure Time of Disposition: 03:14 Disposition: Home, Self-Care 01 Condition: Good Clinical Impression: Viral URI with cough, Early stage of , Cystitis - Discharge Information *PRESCRIPTION DRUG MONITORING PROGRAM REVIEWED*: Not Applicable *COPY OF PRESCRIPTION DRUG MONITORING REPORT IN PATIENT FRANCOISE: Not Applicable Referrals: Dilshad Naik MD [Physician] - Nahomi Blackman MD [Physician] - Forms: ED Department Discharge Additional Instructions: You were seen in the emergency room for a continued headache, nasal congestion with mild sore throat, loss of appetite, shortness of breath, chest pain when breathing in, a dry cough, along with pelvic cramps with spotting in the setting of early . Work-up in the ER included numerous blood tests, a urinalysis, a vaginal wet prep, a vaginal GC/chlamydia by PCR, a swab for the SARS-CoV-2 virus, a chest x- ray, and a transvaginal ultrasound. Your urinalysis indicates that you have a urinary tract infection. You have been started on the antibiotic nitrofurantoin, and a prescription for nitrofurantoin has been sent to the [facility], located just south and across the [address] from [facility]. Take 1 tablet of nitrofurantoin every 12 hours, starting this afternoon, 02/22/2021, as prescribed. Finish the entire prescription unless told otherwise by a doctor. Your quantitative hCG ( hormone) is 560, up from 18 on 02/14/2021. Your transvaginal ultrasound indicates early . The remainder of your work-up is unremarkable. You do not have pneumonia or COVID-19. You are not anemic. No electrolyte abnormalities were found. We recommend that you discontinue Sudafed. You may take [id number] acetaminophen (Tylenol) for discomfort, only. Please follow-up with your Solutions Architect, Dr. Nahomi Blackman, at your previously scheduled appointment this coming , 02/24/2021. Please notify her office that you were seen in the ER, and that tests were done, so that she can review the results. If any other problems, please do not hesitate to return to the ER. Sepsis Event Note (ED) - Focused Exam Vital Signs: Vital Signs Temp Pulse Resp BP Pulse Ox 02/21/21 23:16 36.3 C 82 16 111/75 99 - My Orders Last 24 Hours: My Active Orders 02/21/21 23:57 Chest 2V [CR] Stat 02/22/21 00:45 CULTURE URINE [MREF] Stat 02/22/21 01:02 OB Transvaginal [US] Stat - Assessment/Plan Last 24 Hours: My Active Orders 02/21/21 23:57 Chest 2V [CR] Stat 02/22/21 00:45 CULTURE URINE [MREF] Stat 02/22/21 01:02 OB Transvaginal [US] Stat
[2021-02-22] MEDS ORDERED: Aluminum Hydroxide/Magnesium Hydroxide/Simethicone Susp 30 ML Cup PO ONE (00:50)
[2021-02-22] MEDS ORDERED: Famotidine 20 MG Tab PO ONE (00:51)
[2021-02-22] MEDS ORDERED: Nitrofurantoin Monohydrate/Macrocrystalline 100 MG Cap PO STA (01:41)
[2021-02-22 02:31] LABS: C. TRACHOMATIS BY PCR NOT DETECTED; N. GONORRHOEAE BY PCR NOT DETECTED
--- NOTE | 2021-02-22 09:54 | CR ---
Chest: 2 views of the chest were obtained. Comparison: Prior chest x-ray of 02/14/21. Heart size and mediastinum are within normal limits. Lungs are clear with no acute parenchymal change. Bony structures are unremarkable. Surgical clips are seen within the upper abdomen presumably from prior cholecystectomy. Impression: 1. Nothing acute is seen on 2 view chest x-ray. Diagnostic code #2
--- NOTE | 2021-02-22 10:18 | US ---
First trimester obstetrical ultrasound: Multiple real-time images were obtained transvaginally. Comparison: No previous study for current is available. Dates: LMP: 12/20/20, PENNY 09/26/21, gestational age 9 weeks 1 day Current ultrasound: PENNY 10/26/21, gestational age 4 weeks 6 days Very small cystic area is seen within the endometrial cavity. This is too small to identify a yolk sac or pole. Right and left ovaries appear within normal limits. Hypoechoic area is seen within the right ovary most likely representing hemorrhagic cyst. No free fluid is seen. Small fibroid is likely present within the uterus measuring 2.6 cm. Impression: 1. Small cystic area within the endometrial cavity. Difficult to exclude very early . Recommend follow-up study in 10 days to confirm normal developing . 2. Other findings believed to be incidental as noted above. Diagnostic code #3 I agree with preliminary report from [facility], finalized on 02/22/21, 3:16 AM CDT, code 1
== END 2021-02-22 03:40 | disposition home or self-care (01) ==
LOC: JD.ED 22:31
DX: O99.511 Diseases of the respiratory system complicating pregnancy, first trimester (principal); O23.11 Infections of bladder in pregnancy, first trimester; J06.9 Acute upper respiratory infection, unspecified; Z91.040 Latex allergy status; Z88.0 Allergy status to penicillin; Z88.5 Allergy status to narcotic agent; Z88.8 Allergy status to other drugs, medicaments and biological substances; Z3A.01 Less than 8 weeks gestation of pregnancy; Z20.822 Contact with and (suspected) exposure to COVID-19
CPT/HCPCS: 36415; 71046; 76817; 80053; 81001; 84702; 85007; 85027; 86140; 87086; 87210; 87491; 87591; 87635; 87808; 99284; A9270; U0002

== ENCOUNTER 2023-10-09 12:44 | Emergency (ER) | payer MEDICAID ==
[2023-10-09] MEDS: diphenhydrAMINE 50 MG/ML SDV IVPUSH ONE (14:18)
[2023-10-09] MEDS: Sodium Chloride 0.9% 1,000 ML IV ONE (14:18)
[2023-10-09] MEDS: Ondansetron 4 MG/2 ML SDV IVPUSH ONE (14:18)
[2023-10-09 14:20] LABS: BASOPHILS PERCENT AUTO 0.7 % (0.0-1.0); EOSINOPHILS ABSOLUTE AUTO 0.2 K/mm3 (0.0-0.4); EOSINOPHILS PERCENT AUTO 2.7 % (0.0-6.0); HEMATOCRIT 42.3 % (37.0-47.0); HEMOGLOBIN 14.1 gm/dl (12.0-16.0); IMMATURE GRAN ABSOLUTE AUTO 0.02 K/mm3 (0.00-0.05); IMMATURE GRAN PERCENT AUTO 0.4 % (0.0-0.4); LYMPHOCYTES ABSOLUTE AUTO 2.3 K/mm3 (1.0-4.8); MEAN CORPUSCULAR HEMOGLOBIN 28.9 pg (28.0-32.0); MEAN CORPUSCULAR HGB CONC 33.3 g/dl (32.0-36.0); MEAN CORPUSCULAR VOLUME 86.7 fl (83.0-99.0); MEAN PLATELET VOLUME 10.3 fl (9.4-12.3); MONOCYTES ABSOLUTE AUTO 0.4 K/mm3 (0.0-0.8); MONOCYTES PERCENT AUTO 6.2 % (0.0-8.0); NEUTROPHILS ABSOLUTE AUTO 2.8 K/mm3 (1.8-7.7); PLATELET COUNT,PLT 298 K/mm3 (150-400); RED BLOOD CELL COUNT 4.88 M/mm3 (4.10-5.30); WHITE BLOOD CELL COUNT,WBC 5.64 K/mm3 (3.9-11.3)
[2023-10-09 14:40] LABS: A/G RATIO 0.9 (1-2); ALBUMIN 3.7 g/dl (3.4-5.0); ANION GAP 14.8 (5-15); BILIRUBIN TOTAL 0.4 mg/dL (0.2-1.0); BUN/CREATININE RATIO 14.4 (14-18); CREATININE 0.9 mg/dL (0.55-1.02); EST CRCL DRUG DOSING (CG) 86.73 mL/min; POTASSIUM,K 3.8 mEq/L (3.5-5.1); PROTEIN TOTAL,TP 7.7 g/dl (6.4-8.2)
[2023-10-09] MEDS: Ketorolac 15 MG/ML SDV IVPUSH ONE (16:29)
[2023-10-09] MEDS: Acetaminophen 325 MG Tab PO ONE (16:31)
== END 2023-10-09 17:00 | disposition home or self-care (01) ==
LOC: JD.ED 12:44
DX: M25.511 Pain in right shoulder (principal); R51.9 Headache, unspecified; Z91.048 Other nonmedicinal substance allergy status; Z88.8 Allergy status to other drugs, medicaments and biological substances; Z88.0 Allergy status to penicillin; Z91.040 Latex allergy status; Z79.82 Long term (current) use of aspirin; Z79.899 Other long term (current) drug therapy
CPT/HCPCS: 36415; 70450; 80053; 84703; 85025; 96361; 96374; 96375; 99284; A9270; J1200; J1885; J2405; J7030

== ENCOUNTER 2023-10-18 20:37 | Emergency (ER) | payer MEDICAID ==
[2023-10-18] MEDS: Ketorolac 30 MG/ML SDV IM ONE (21:18)
[2023-10-18] MEDS: Ondansetron 4 MG Tab.DIS PO ONE (21:35)
[2023-10-18] MEDS: Ondansetron 4 MG/2 ML SDV IVPUSH ONE (21:37)
== END 2023-10-18 22:03 | disposition home or self-care (01) ==
LOC: JD.ED 20:37
DX: S43.401A Unspecified sprain of right shoulder joint, initial encounter (principal); Z86.73 Personal history of transient ischemic attack (TIA), and cerebral infarction without residual deficits; Z79.82 Long term (current) use of aspirin; Z79.899 Other long term (current) drug therapy; Z91.048 Other nonmedicinal substance allergy status; Z88.0 Allergy status to penicillin; Z88.8 Allergy status to other drugs, medicaments and biological substances; Z91.040 Latex allergy status; X50.1XXA Overexertion from prolonged static or awkward postures, initial encounter
CPT/HCPCS: 71046; 73030; 96372; 99284; A9270; J1885; 99283

== ENCOUNTER 2023-11-05 21:16 | Emergency (ER) | payer MEDICAID ==
[2023-11-05 21:50] LABS: BASOPHILS PERCENT AUTO 0.5 % (0.0-1.0); EOSINOPHILS ABSOLUTE AUTO 0.2 K/mm3 (0.0-0.4); EOSINOPHILS PERCENT AUTO 2.4 % (0.0-6.0); HEMATOCRIT 38.1 % (37.0-47.0); HEMOGLOBIN 12.8 gm/dl (12.0-16.0); IMMATURE GRAN ABSOLUTE AUTO 0.03 K/mm3 (0.00-0.05); IMMATURE GRAN PERCENT AUTO 0.4 % (0.0-0.4); LYMPHOCYTES ABSOLUTE AUTO 2.6 K/mm3 (1.0-4.8); LYMPHOCYTES PERCENT AUTO 33.4 % (24.0-44.0); MEAN CORPUSCULAR HEMOGLOBIN 28.7 pg (28.0-32.0); MEAN CORPUSCULAR HGB CONC 33.6 g/dl (32.0-36.0); MEAN CORPUSCULAR VOLUME 85.4 fl (83.0-99.0); MEAN PLATELET VOLUME 10.5 fl (9.4-12.3); MONOCYTES ABSOLUTE AUTO 0.6 K/mm3 (0.0-0.8); MONOCYTES PERCENT AUTO 7.3 % (0.0-8.0); NEUTROPHILS ABSOLUTE AUTO 4.4 K/mm3 (1.8-7.7); PLATELET COUNT,PLT 262 K/mm3 (150-400); RED BLOOD CELL COUNT 4.46 M/mm3 (4.10-5.30); WHITE BLOOD CELL COUNT,WBC 7.78 K/mm3 (3.9-11.3)
[2023-11-05 22:10] LABS: APPEARANCE,URINE CLEAR (Clear); BILIRUBIN,URINE NEGATIVE (Negative); COLOR,URINE YELLOW (Yellow); GLUCOSE,URINE NEGATIVE (Negative); KETONES,URINE NEGATIVE (Negative); LEUKOCYTE ESTERASE,URINE TRACE (Negative); NITRITE,URINE NEGATIVE (Negative); OCCULT BLOOD,URINE NEGATIVE (Negative); PH,URINE 6.5 (5.0-8.0); PROTEIN,URINE NEGATIVE (Negative); UROBILINOGEN,URINE 0.2 (0.2-1.0)
[2023-11-05 22:23] LABS: A/G RATIO 0.9 (1-2); ALBUMIN 3.5 g/dl (3.4-5.0); ANION GAP 13.8 (5-15); BILIRUBIN TOTAL 0.3 mg/dL (0.2-1.0); BUN/CREATININE RATIO 13.8 (14-18); CALCIUM 9.3 mg/dL (8.5-10.1); CREATININE 0.8 mg/dL (0.55-1.02); EST CRCL DRUG DOSING (CG) 97.57 mL/min; POTASSIUM,K 3.8 mEq/L (3.5-5.1); PROTEIN TOTAL,TP 7.3 g/dl (6.4-8.2)
[2023-11-05 22:24] LABS: BACTERIA,URINE MODERATE /hpf (FEW); MUCUS,URINE MODERATE /hpf (FEW); RBC,URINE 0-5 /hpf (0-5); WBC,URINE 0-5 /hpf (0-5)
== END 2023-11-05 23:23 | disposition home or self-care (01) ==
LOC: JD.ED 21:16
DX: O20.0 Threatened abortion (principal); Z3A.00 Weeks of gestation of pregnancy not specified; Z90.49 Acquired absence of other specified parts of digestive tract; Z79.82 Long term (current) use of aspirin; Z88.0 Allergy status to penicillin; Z91.040 Latex allergy status; Z88.8 Allergy status to other drugs, medicaments and biological substances; Z91.048 Other nonmedicinal substance allergy status
CPT/HCPCS: 36415; 80053; 81001; 81003; 83690; 84702; 85025; 87086; 99284

== ENCOUNTER 2023-11-11 21:01 | Emergency (ER) | payer MEDICAID ==
[2023-11-11] MEDS ORDERED: Sodium Chloride 0.9% 10 ML Syringe FLUSH PRN (21:43)
[2023-11-11 22:13] LABS: BASOPHILS PERCENT AUTO 0.5 % (0.0-1.0); EOSINOPHILS ABSOLUTE AUTO 0.2 K/mm3 (0.0-0.4); HEMATOCRIT 35.5 % (37.0-47.0); HEMOGLOBIN 11.7 gm/dl (12.0-16.0); IMMATURE GRAN ABSOLUTE AUTO 0.03 K/mm3 (0.00-0.05); IMMATURE GRAN PERCENT AUTO 0.4 % (0.0-0.4); LYMPHOCYTES ABSOLUTE AUTO 2.5 K/mm3 (1.0-4.8); LYMPHOCYTES PERCENT AUTO 31.4 % (24.0-44.0); MEAN CORPUSCULAR VOLUME 88.1 fl (83.0-99.0); MEAN PLATELET VOLUME 10.1 fl (9.4-12.3); MONOCYTES ABSOLUTE AUTO 0.5 K/mm3 (0.0-0.8); MONOCYTES PERCENT AUTO 6.8 % (0.0-8.0); NEUTROPHILS ABSOLUTE AUTO 4.7 K/mm3 (1.8-7.7); NEUTROPHILS PERCENT AUTO 58.9 % (41.0-71.0); PLATELET COUNT,PLT 261 K/mm3 (150-400); RED BLOOD CELL COUNT 4.03 M/mm3 (4.10-5.30); WHITE BLOOD CELL COUNT,WBC 7.95 K/mm3 (3.9-11.3)
[2023-11-11] MEDS: Ibuprofen 600 MG Tab PO ONE (22:29)
[2023-11-11] MEDS: SUMAtriptan 6 MG/0.5 ML SDV SUBCUT ONE (22:29)
[2023-11-11] MEDS: Sodium Chloride 0.9% 1,000 ML IV ONE (22:29)
[2023-11-11 22:35] LABS: ALANINE AMINOTRANSFERASE,ALT 29 U/L (14-59); ALBUMIN 3.5 g/dl (3.4-5.0); ALKALINE PHOSPHATASE 73 U/L (46-116); ANION GAP 14.4 (5-15); ASPARTATE AMNIOTRANSFERASE,AST 16 U/L (15-37); BILIRUBIN TOTAL 0.3 mg/dL (0.2-1.0); BLOOD UREA NITROGEN,BUN 14 mg/dL (7-18); BUN/CREATININE RATIO 15.6 (14-18); C-REACTIVE PROTEIN 0.55 mg/dL (<0.30); CALCIUM 8.9 mg/dL (8.5-10.1); CARBON DIOXIDE,CO2 24 mEq/L (21-32); CHLORIDE,CL 105 mEq/L (98-107); CREATININE 0.9 mg/dL (0.55-1.02); ESTIMATED GFR 92 mL/min (>60); GLUCOSE RANDOM 87 mg/dL (70-99); MAGNESIUM 1.6 mg/dL (1.8-2.4); POTASSIUM,K 3.4 mEq/L (3.5-5.1); PROTEIN TOTAL,TP 6.9 g/dl (6.4-8.2); SODIUM,NA 140 mEq/L (136-145)
== END 2023-11-11 22:36 | disposition home or self-care (01) ==
LOC: JD.ED 21:01
DX: O99.351 Diseases of the nervous system complicating pregnancy, first trimester (principal); G43.909 Migraine, unspecified, not intractable, without status migrainosus; Z91.048 Other nonmedicinal substance allergy status; Z88.8 Allergy status to other drugs, medicaments and biological substances; Z88.0 Allergy status to penicillin; Z91.040 Latex allergy status; Z79.51 Long term (current) use of inhaled steroids; Z79.82 Long term (current) use of aspirin; Z79.899 Other long term (current) drug therapy; Z86.73 Personal history of transient ischemic attack (TIA), and cerebral infarction without residual deficits; Z90.49 Acquired absence of other specified parts of digestive tract; Z3A.08 8 weeks gestation of pregnancy
CPT/HCPCS: 36415; 80053; 83735; 85025; 86140; 99283; 99284